=== PATIENT | male | born 1990 | race Caucasian/White ===

== ENCOUNTER 2023-05-12 09:34 | Outpatient (CLI) | payer OTHER, SELFPAY | END 2023-05-12 09:35 | disposition home or self-care (01) | LOC: NFLDREF 05-13 06:01 | PROVIDERS: PCP Emergency Medicine; Referring Provider Emergency Medicine; Visit Provider Emergency Medicine | DX: E78.5 Hyperlipidemia, unspecified (principal); Z13.1 Encounter for screening for diabetes mellitus; E66.8 Other obesity; M10.9 Gout, unspecified | CPT/HCPCS: 80053; 80061; 84443; 84550 ==

== ENCOUNTER 2025-06-29 09:14 | Outpatient (CLI) | payer OTHER, SELFPAY | END 2025-06-29 09:15 | disposition home or self-care (01) | LOC: NFLDREF 07-04 21:38 | PROVIDERS: PCP Family Medicine; Visit Provider Family Medicine | DX: Z13.6 Encounter for screening for cardiovascular disorders (principal); Z00.00 Encounter for general adult medical examination without abnormal findings | CPT/HCPCS: 80053; 80061 ==